=== PATIENT | male | born 1960 | race Caucasian/White ===

== ENCOUNTER 2018-01-27 06:41 | Emergency (ER) | payer OTHER ==
[~2018-01-27] VITALS: Ht 177.8 cm; Wt 101.4 kg
[2018-01-27 06:47] VITALS: Ht 177.8 cm; Wt 101.4 kg
[2018-01-27 08:13] VITALS: BP 120/80
== END 2018-01-27 08:13 | disposition home or self-care (01) ==
LOC: ED 06:41
DX: M54.5 Low back pain (principal); E11.9 Type 2 diabetes mellitus without complications; I10 Essential (primary) hypertension
CPT/HCPCS: J1885

== ENCOUNTER 2018-02-13 16:15 | Emergency (ER) | payer OTHER ==
[~2018-02-13] VITALS: Ht 177.8 cm; Wt 99.3 kg
[2018-02-13 17:34] LABS: BASOPHIL % 0.8 % (0-2); PLATELET COUNT 255 x10^3mcL (130-400); RED CELL DISTRIBUTION WIDTH 13.6 % (11.5-14.5)
[2018-02-13 17:43] LABS: CALCIUM 8.8 mg/dL (8.5-10.1); CARBON DIOXIDE 24.2 mmol/L (21-32); CHLORIDE SERUM 105 mmol/L (98-107); CREATININE SERUM 1.1 mg/dL (0.7-1.3); GFR1 > 60 mL/min; GLUCOSE SERUM 411 mg/dL (74-106); SODIUM SERUM 139 mmol/L (136-145)
[2018-02-13 18:18] VITALS: BP 131/76
== END 2018-02-13 18:18 | disposition home or self-care (01) ==
LOC: ED 16:15
PROVIDERS: Emergency Medicine
DX: E11.65 Type 2 diabetes mellitus with hyperglycemia (principal); I10 Essential (primary) hypertension; R42 Dizziness and giddiness
CPT/HCPCS: 82962